=== PATIENT | female | born 1955 | race Caucasian/White ===

== ENCOUNTER 2020-10-16 10:33 | Outpatient (CLI) | payer BC ==
--- NOTE | 2020-10-16 11:28 | RAD ---
XR Abdomen 2 View History: Abdominal pain. Constipation Comparison: None. Findings: Mild S-shaped scoliosis of lumbar spine. Numerous phleboliths in the pelvis. No dilated loops of large or small bowel. No abnormal calcifications are seen projecting over the renal shadows. Lung bases are clear. No free air under the hemidiaphragms. Impression: Moderate volume stool burden within the colon. No acute abnormality. No evidence for nae l obstruction.
== END 2020-10-16 10:34 | disposition home or self-care (01) ==
LOC: BICRAD 10:33
PROVIDERS: ATTEND Physician Assistant Medical
DX: R10.9 Unspecified abdominal pain (principal); M54.5 Low back pain; K59.09 Other constipation; R19.5 Other fecal abnormalities
CPT/HCPCS: 74019

== ENCOUNTER 2021-02-22 12:06 | Outpatient (CLI) | payer BC ==
[~2021-02-22 12:06] MED LIST: Magnevist 469MG/ML 20 ML VIAL ONE
[2021-02-22 13:08] LABS: Estimated GFR-MDRD - POC Greater than 90
== END 2021-02-22 12:07 | disposition home or self-care (01) ==
LOC: BICMRI 12:06
PROVIDERS: ATTEND Physician Assistant Medical
DX: R10.11 Right upper quadrant pain (principal); K76.89 Other specified diseases of liver; D18.03 Hemangioma of intra-abdominal structures
CPT/HCPCS: 74183; 82565; A9579

== ENCOUNTER 2021-07-16 10:53 | Outpatient (CLI) | payer BC | END 2021-07-16 10:54 | disposition home or self-care (01) | LOC: BICMAMMO 10:53 | PROVIDERS: ATTEND Internal Medicine | DX: Z12.31 Encounter for screening mammogram for malignant neoplasm of breast (principal); Z80.3 Family history of malignant neoplasm of breast | CPT/HCPCS: 77063; 77067 ==

== ENCOUNTER 2022-01-16 10:33 | Outpatient (CLI) | payer BC ==
[2022-01-16 11:24] LABS: Estimated GFR-MDRD - POC Greater than 90
== END 2022-01-16 10:34 | disposition home or self-care (01) ==
LOC: MRI 10:33
PROVIDERS: ATTEND Internal Medicine Gastroenterology
DX: D12.6 Benign neoplasm of colon, unspecified (principal); R93.2 Abnormal findings on diagnostic imaging of liver and biliary tract; K76.89 Other specified diseases of liver; D18.00 Hemangioma unspecified site
CPT/HCPCS: 74183; 82565

== ENCOUNTER 2022-08-21 14:14 | Outpatient (CLI) | payer BC | END 2022-08-21 14:15 | disposition home or self-care (01) | LOC: BICMAMMO 14:14 | PROVIDERS: ATTEND Internal Medicine | DX: Z12.31 Encounter for screening mammogram for malignant neoplasm of breast (principal); R92.8 Other abnormal and inconclusive findings on diagnostic imaging of breast; Z80.3 Family history of malignant neoplasm of breast | CPT/HCPCS: 77063; 77067 ==

== ENCOUNTER 2023-09-05 13:35 | Outpatient (CLI) | payer MEDICARE, OTHER | END 2023-09-05 13:36 | disposition home or self-care (01) | LOC: BICULT 13:35 | PROVIDERS: ATTEND Internal Medicine | DX: R92.8 Other abnormal and inconclusive findings on diagnostic imaging of breast (principal) ==

== ENCOUNTER 2024-02-11 12:38 | Outpatient (CLI) | payer MEDICARE, OTHER | END 2024-02-11 12:39 | disposition home or self-care (01) | LOC: MRI 12:38 | PROVIDERS: ATTEND Physician Assistant Medical | DX: R93.2 Abnormal findings on diagnostic imaging of liver and biliary tract (principal); Z86.010 Personal history of colon polyps; K76.89 Other specified diseases of liver; D18.03 Hemangioma of intra-abdominal structures | CPT/HCPCS: 74183; 82565; A9579 ==

== ENCOUNTER 2025-05-18 10:54 | Outpatient (CLI) | payer MEDICARE, OTHER | END 2025-05-18 10:55 | disposition home or self-care (01) | LOC: BICMAMMO 10:54 | PROVIDERS: ATTEND Internal Medicine | DX: M81.0 Age-related osteoporosis without current pathological fracture (principal) | CPT/HCPCS: 77080 ==